=== PATIENT | female | born 1975 | race Caucasian/White ===

== ENCOUNTER → 2020-09-21 11:17 | Outpatient (BNVA) | payer MEDICAID, SELFPAY | PROVIDERS: Visit Provider Nurse Practitioner Family | DX: Z03.818 Encounter for observation for suspected exposure to other biological agents ruled out (principal); Z20.828 Contact with and (suspected) exposure to other viral communicable diseases; J02.9 Acute pharyngitis, unspecified | CPT/HCPCS: 87635; 87880 ==